=== PATIENT | female | born 1965 | race American Indian/Alaskan Native ===

== ENCOUNTER 2018-07-09 19:26 | Emergency (ER) | payer BC ==
[2018-07-09 19:26] VITALS: BMI 21.2
[2018-07-09 20:13] VITALS: TEMP 98.2
[2018-07-09] MEDS ORDERED: Lidocaine 5% Patch TD STA (21:20)
--- NOTE | 2018-07-09 21:40 | ED PDOC ---
Arrival/HPI - General Chief Complaint: Back Pain Time Seen by Provider: 07/09/18 20:27 Historian: Patient - History of Present Illness Narrative History of Present Illness (Text): 07/09/18 21:41 52-year-old female with past medical history of lupus, reports waking up this morning and developing pain in the lower back which radiates to the left buttock and left thigh, worse with movement, reports taking Tylenol without improvement prompting ER visit. Denies trauma, injury, heavy lifting, urinary symptoms, similar pain in the past. Otherwise: (-) paresthesias, (-) weakness, (-) acute bowel or bladder dysfunction, (-) fever. PMD Kenny Past Medical History - Tetanus Immunization Tetanus Immunization: Unknown - Reproductive Currently : No - Cardiac Hx Pacemaker: No - Neurological Hx Paralysis: No - Hematological/Oncological Hx Blood Transfusions: No Hx Blood Transfusion Reaction: No - Musculoskeletal/Rheumatological Hx Musculoskeletal Disorders: Yes (RA) - Psychiatric Hx Emotional Abuse: No Hx Physical Abuse: No Hx Substance Use: No - Past Surgical History Past Surgical History: No Previous - Anesthesia Hx Anesthesia: Yes Hx Anesthesia Reactions: No Hx Malignant Hyperthermia: No - Suicidal Assessment Feels Threatened In Home Enviroment: No Family/Social History Family/Social History: No Known Family HX Smoking Status: Never Smoked Hx Alcohol Use: No Hx Substance Use: No Hx Substance Use Treatment: No Allergies/Home Meds Allergies/Adverse Reactions: Allergies No Known Allergies Allergy (Verified 10/23/14 13:47) Home Medications: Home Meds Medication Instructions Recorded Confirmed Hydroxychloroquine Sulfate 200 mg PO BID 01/25/13 10/25/14 [Plaquenil] predniSONE [Prednisone] 4 mg PO QAM 10/23/14 10/26/14 Casanthranol/Docusate Sodium 100 mg PO BID PRN 10/26/14 10/26/14 [Aspen-Colace 30 mg-100 mg] Granisetron HCl [Kytril] 1 mg PO Q8 PRN 10/26/14 10/26/14 Oxycodone HCl/Acetaminophen 1 tab PO Q6 PRN 10/26/14 10/26/14 [Percocet 325 mg-5 mg] Review of Systems - Review of Systems Constitutional: absent: Fatigue, Fevers Respiratory: absent: SOB, Cough Cardiovascular: absent: Chest Pain, Palpitations Gastrointestinal: absent: Abdominal Pain, Nausea, Vomiting Genitourinary Female: absent: Dysuria, Frequency Musculoskeletal: Back Pain. absent: Arthralgias, Neck Pain Skin: absent: Rash, Pruritis, Skin Lesions Neurological: absent: Headache, Dizziness Physical Exam - Physical Exam Narrative Physical Exam (Text): 07/09/18 21:43 GENERAL APPEARANCE: Patient is awake, alert, oriented x 3, in mild to moderate painful distress. SKIN: Warm, dry; (-) cyanosis. EYES: (-) conjunctival pallor. ENMT: Mucous membranes moist. NECK: (-) tenderness, (-) stiffness, (-) lymphadenopathy. CHEST AND RESPIRATORY: (-) rales, (-) rhonchi, (-) wheezes; breath sounds equal bilaterally. HEART AND CARDIOVASCULAR: (-) irregularity; (-) murmur, (-) gallop. ABDOMEN AND GI: Soft; (-) tenderness; (-) palpable mass. BACK: (+) tenderness to the L paralumbar area, (+) mild spasm, (-) direct bony tenderness, (-) deformity. Straight leg raising (-) bilaterally. EXTREMITIES: (-) deformity. Distal pulses good bilaterally. NEURO AND PSYCH: Mental status as above. Intact sensation bilaterally; normal strength in extension of the knees, plantar and dorsiflexion of the toes. DTRs symmetric. Vital Signs Temp Pulse Resp BP Pulse Ox 07/09/18 19:26 98.2 F 86 18 139/72 96 Medical Decision Making ED Course and Treatment: 07/09/18 21:45 Plan : - Uhcg - XR L spine - toradol IM - lidoderm patch - flexeril PO XR L spine : +mild DJD, no acute abnormality. On reevaluation, patient reports improvement of symptoms, states that she still has some mild pain. On exam, patient remains awake alert and oriented 3 in no acute distress. Neck is supple, lungs are clear to auscultation, cardiac regular rate and rhythm, abdomen soft and nontender, repeat neuro exam shows no focal findings.XR results d/w the patient, diagnosis of sciatica d/w the patient. Given ultram 50 mg po. Advised to follow up with primary care physician in 1-2 days without fail. Advised to take medication as prescribed. Return to the emergency room at any time for any new or worsening symptoms. Patient states she fully agrees with and understands discharge instructions. States that she agrees with the plan and disposition. Verbalized and repeated discharge instructions and plan. I have given the patient opportunity to ask any additional questions. - RAD Interpretation Radiology Orders: 07/09/18 21:21 LS SPINE WITH OBL > 18 YRS OLD [RAD] Stat - Medication Orders Current Medication Orders: Discontinued Medications Cyclobenzaprine HCl (Flexeril) 10 mg PO STAT STA Stop: 07/09/18 21:21 Ketorolac Tromethamine (Toradol) 60 mg IM STAT STA Stop: 07/09/18 21:21 Lidocaine (Lidoderm) 1 ea TD STAT STA Stop: 07/09/18 21:21 - PA / SOFTWARE SALES / Resident Statement /DO has reviewed & agrees with the documentation as recorded. Disposition/Present on Arrival - Present on Arrival Any Indicators Present on Arrival: No History of DVT/PE: No History of Uncontrolled Diabetes: No Urinary Catheter: No History of Decub. Ulcer: No History Surgical Site Infection Following: None - Disposition Have Diagnosis and Disposition been Completed?: Yes Diagnosis: Sciatica Disposition: HOME/ ROUTINE Disposition Time: 23:30 Patient Plan: Discharge Patient Problems: Current Active Problems Problem Status Onset Sciatica Acute Condition: STABLE Discharge Instructions (ExitCare): Sciatica (DC) Additional Instructions: Thank you for letting us take care of you today. You were treated for sciatica. The emergency medical care you received today was directed at your acute symptoms. If you were prescribed any medication, please fill it and take as directed. It may take several days for your symptoms to resolve. Return to the Emergency Department if your symptoms worsen, do not improve, or if you have any other problems. Please contact your doctor in 2 days for re-evaluation and follow up. Bring any paperwork you were given at discharge with you along with any medications you are taking to your follow up visit. Our treatment cannot replace ongoing medical care by a primary care provider (PCP) outside of the emergency department. Thank you for allowing the [facility] team to be part of your care today. Prescriptions: Cyclobenzaprine [Cyclobenzaprine HCl] 10 mg PO TID PRN #15 tab PRN Reason: Muscle Spasm Diclofenac Epolamine [Flector] 1 each TD BID #20 patch.td12 Meloxicam [Mobic] 15 mg PO DAILY #20 tab Referrals: Kenny,Maritza, MD [Primary Care Provider] - Follow up with primary Forms: [employer] ([place]o), WORK NOTE
[2018-07-09 23:53] VITALS: BP 127/68; PULSE 80; RESP 17; O2SAT 98
--- NOTE | 2018-07-10 10:54 | RAD ---
Date of service: 07/09/2018 PROCEDURE: Radiographs of the Lumbar Spine. HISTORY: pain COMPARISON: No prior. FINDINGS: BONES: Normal alignment. No listhesis. No fracture. DISC SPACES: Unremarkable. OTHER FINDINGS: None. IMPRESSION: Unremarkable radiographs of the lumbar spine.
== END 2018-07-09 23:51 | disposition home or self-care (01) ==
LOC: ED 19:26
DX: M54.30 Sciatica, unspecified side (principal); M32.9 Systemic lupus erythematosus, unspecified
CPT/HCPCS: 72110; 96372; 99282; J1885

== ENCOUNTER 2018-07-10 06:13 | Emergency (ER) | payer BC ==
[2018-07-10 06:14] VITALS: BMI 21.2
== END 2018-07-10 06:24 | disposition left against medical advice (07) ==
LOC: ED 06:13
DX: Z02.89 Encounter for other administrative examinations (principal); M54.9 Dorsalgia, unspecified